=== PATIENT | female | born 1995 | race Hispanic/Latino ===

== ENCOUNTER 2017-01-27 14:20 | Emergency (ER) | payer OTHER ==
[~2017-01-27] VITALS: Ht 157.5 cm; Wt 77.0 kg
[2017-01-27 14:23] VITALS: BP 161/84
[2017-01-27] MEDS ORDERED: PYRI25TA3 PO (14:58)
[2017-01-27] MEDS ORDERED: CVS25TAB16 PO (14:58)
== END 2017-01-27 15:12 | disposition home or self-care (01) ==
LOC: M ED 14:20
DX: Z32.01 Encounter for pregnancy test, result positive (principal)

== ENCOUNTER 2017-02-04 15:19 | Emergency (ER) | payer OTHER ==
[~2017-02-04] VITALS: Ht 157.5 cm; Wt 75.8 kg
[~2017-02-04 15:19] MED LIST: CVS25TAB16 PO; PYRI25TA3 PO; PYRIDOXINE 50 MG TAB PO SCH
[2017-02-04] MEDS ORDERED: NS 500 ML IV ONE (17:15)
[2017-02-04 17:43] LABS: BASO % 0.5 % (0.0-1.0); EOS # 0.2 K/mm3 (0.0-0.50); EOS % 1.4 % (0.0-3.0); LARGE UNSTAINED CELL # 0.1 K/mm3 (0.0-0.4); LARGE UNSTAINED CELL % 0.9 % (0.0-4.0); LYMPH # 1.2 K/mm3 (1.5-6.5); LYMPH % 10.6 % (24.0-44.0); MEAN CORPUSCULAR HEMOGLOBIN 28.3 pg (27.0-33.0); MEAN CORPUSCULAR HGB CONC 33.1 g/dl (32.0-36.5); MEAN CORPUSCULAR VOLUME 85.3 fl (80.0-96.0); MONO # 0.4 K/mm3 (0.0-0.8); MONO % 3.6 % (0.0-5.0); PLATELET COUNT, AUTOMATED 293 k/mm3 (150-450); RED CELL DISTRIBUTION WIDTH 13.1 % (11.5-14.5); WHITE BLOOD COUNT 10.8 K/mm3 (4.0-10.0)
[2017-02-04 18:14] LABS: ALKALINE PHOSPHATASE 42 U/L (45-117); ALT/SGPT 39 U/L (12-78); AST/SGOT 16 U/L (15-37); BILIRUBIN,DIRECT 0.1 MG/DL (0.0-0.2); BILIRUBIN,TOTAL 0.4 MG/DL (0.2-1.0); BLOOD UREA NITROGEN 7 MG/DL (7-18); CALCIUM LEVEL 8.9 MG/DL (8.5-10.1); CARBON DIOXIDE LEVEL 24 MEQ/L (21-32); CHLORIDE LEVEL 105 MEQ/L (98-107); CREATININE FOR GFR 0.66 MG/DL (0.55-1.02); GLUCOSE, FASTING 80 MG/DL (70-105); POTASSIUM SERUM 3.7 MEQ/L (3.5-5.1); SODIUM LEVEL 139 MEQ/L (136-145); TOTAL PROTEIN 8.3 GM/DL (6.4-8.2)
[2017-02-04] MEDS ORDERED: NS 1,000 ML IV ONE (18:30)
[2017-02-04 18:46] LABS: HCG, SERUM QUANTITATIVE 27933 MIU/ML
[2017-02-04 18:50] LABS: ANION GAP 10 MEQ/L (8-16)
[2017-02-04 18:51] LABS: ALBUMIN/GLOBULIN RATIO 0.93 (1.00-1.93)
--- NOTE | 2017-02-04 19:50 | REPUSA ---
Clinical history: vomiting. Findings: Real-time transabdominal and transvaginal ultrasound images of the pelvis were obtained. Th ere is a single intrauterine gestational sac with a crown rump length of 0.5 cm. heart rate cordelia sures 124 bpm. There is no evidence of a subchorionic hemorrhage. An anteverted uterus is noted, nain uring 9.2 x 4.6 cm. The uterus demonstrates normal echotexture and echogenicity. The endometrial str ipe measures 3 mm and is within normal limits. The right ovary was not visualized. The left ovary me asures 2.6 x 1.6 x 2.2 cm. No adnexal masses are seen. There is no evidence of free fluid. Impression: 1. Single live intrauterine measuring 6 weeks 1 day, with heart rate of 124 bpm. Fely mated due date is 09/25/2017. 2. No other gross abnormalities appreciated.
[2017-02-04] MEDS ORDERED: REGL10TA6 PO (20:40)
[2017-02-04 21:10] VITALS: BP 129/58
== END 2017-02-04 21:16 | disposition home or self-care (01) ==
LOC: M ED 15:19
DX: O21.0 Mild hyperemesis gravidarum (principal); Z3A.01 Less than 8 weeks gestation of pregnancy

== ENCOUNTER 2017-02-11 23:53 | Emergency (ER) | payer OTHER ==
[~2017-02-11 23:53] MED LIST changes: -PYRIDOXINE 50 MG TAB PO SCH; +REGL10TA6 PO
[2017-02-12] MEDS ORDERED: NS 500 ML IV ONE (00:30)
[2017-02-12] MEDS ORDERED: ONDANSETRON 4MG/2ML VIAL (J2405) IV ONE ×2 (00:30→03:00)
[2017-02-12 00:46] LABS: BASO % 0.4 % (0.0-1.0); EOS # 0.1 K/mm3 (0.0-0.50); LARGE UNSTAINED CELL # 0.1 K/mm3 (0.0-0.4); LARGE UNSTAINED CELL % 1.1 % (0.0-4.0); LYMPH # 1.4 K/mm3 (1.5-6.5); LYMPH % 10.9 % (24.0-44.0); MEAN CORPUSCULAR HEMOGLOBIN 29.3 pg (27.0-33.0); MEAN CORPUSCULAR HGB CONC 34.5 g/dl (32.0-36.5); MONO # 0.6 K/mm3 (0.0-0.8); MONO % 4.9 % (0.0-5.0); NEUTROPHILS # 10.4 K/mm3 (1.8-7.7); NEUTROPHILS % 81.8 % (36.0-66.0); PLATELET COUNT, AUTOMATED 323 k/mm3 (150-450); RED CELL DISTRIBUTION WIDTH 12.8 % (11.5-14.5); WHITE BLOOD COUNT 12.7 K/mm3 (4.0-10.0)
[2017-02-12 00:55] LABS: CONTROL LINE HCG INT CTR LINE PRESENT
[2017-02-12 01:14] LABS: ALBUMIN/GLOBULIN RATIO 0.78 (1.00-1.93); ALKALINE PHOSPHATASE 42 U/L (45-117); ALT/SGPT 53 U/L (12-78); ANION GAP 11 MEQ/L (8-16); AST/SGOT 22 U/L (15-37); BILIRUBIN,DIRECT 0.2 MG/DL (0.0-0.2); BILIRUBIN,TOTAL 0.5 MG/DL (0.2-1.0); BLOOD UREA NITROGEN 8 MG/DL (7-18); CALCIUM LEVEL 9.5 MG/DL (8.5-10.1); CARBON DIOXIDE LEVEL 23 MEQ/L (21-32); CHLORIDE LEVEL 104 MEQ/L (98-107); CREATININE FOR GFR 0.69 MG/DL (0.55-1.02); GLOMERULAR FILTRATION RATE > 60.0 (>60); GLUCOSE, FASTING 89 MG/DL (70-105); POTASSIUM SERUM 3.3 MEQ/L (3.5-5.1); SODIUM LEVEL 138 MEQ/L (136-145); TOTAL PROTEIN 9.1 GM/DL (6.4-8.2)
[2017-02-12] MEDS ORDERED: MACR100C43 PO (04:39)
[2017-02-12] MEDS ORDERED: ZOFR4TAB3 PO (04:39)
[2017-02-12 04:50] VITALS: BP 104/53
[2017-02-13] MEDS ORDERED: FLAG500T PO (21:31)
[2017-02-13] MEDS ORDERED: TIGA300C2 PO (21:31)
== END 2017-02-12 04:51 | disposition home or self-care (01) ==
LOC: M ED 23:53
DX: O21.0 Mild hyperemesis gravidarum (principal); O23.41 Unspecified infection of urinary tract in pregnancy, first trimester; Z3A.01 Less than 8 weeks gestation of pregnancy
CPT/HCPCS: 80048; 80076; 81001; 83605; 83690; 84703; 85025; 93041; 96374; 96375; 99284; J2405

== ENCOUNTER 2017-02-13 18:09 | Emergency (ER) | payer OTHER ==
[~2017-02-13] VITALS: Ht 157.5 cm; Wt 73.7 kg
[~2017-02-13 18:09] MED LIST changes: +MACR100C43 PO; +ZOFR4TAB3 PO
[2017-02-13] MEDS ORDERED: NS 1,000 ML IV ONE (19:45)
[2017-02-13] MEDS ORDERED: METOCLOPRAMIDE INJ 10MG/2ML VIAL (J2765) IV ONE (19:45)
[2017-02-13 20:18] LABS: BASO % 0.3 % (0.0-1.0); EOS # 0.1 K/mm3 (0.0-0.50); EOS % 1.3 % (0.0-3.0); LARGE UNSTAINED CELL # 0.1 K/mm3 (0.0-0.4); LARGE UNSTAINED CELL % 0.6 % (0.0-4.0); LYMPH % 11.2 % (24.0-44.0); MEAN CORPUSCULAR HEMOGLOBIN 28.7 pg (27.0-33.0); MEAN CORPUSCULAR HGB CONC 33.8 g/dl (32.0-36.5); MEAN CORPUSCULAR VOLUME 85.1 fl (80.0-96.0); MONO # 0.3 K/mm3 (0.0-0.8); MONO % 3.6 % (0.0-5.0); NEUTROPHILS # 7.4 K/mm3 (1.8-7.7); PLATELET COUNT, AUTOMATED 301 k/mm3 (150-450); RED CELL DISTRIBUTION WIDTH 12.9 % (11.5-14.5)
--- NOTE | 2017-02-13 20:30 | REPUSA ---
Clinical history: Right upper quadrant pain. Findings: The pancreas is limited in visualization secondary to overlying bowel gas, but appears krystal sly unremarkable. The liver demonstrates increased echotexture and echogenicity, with no mass lesions . The gallbladder contains several tiny gallstones. The common bile duct measures 4 mm and is within normal limits. The right kidney measures 10.8 cm in length and is unremarkable. There is no ascites. Impression: 1. Cholelithiasis, without evidence of acute cholecystitis. 2. Fatty infiltration of the liver.
[2017-02-13] MEDS ORDERED: TRIMETHOBENZAMIDE HCL INJ 200 MG/2 ML VIAL (J3250) IM ONE (20:45)
[2017-02-13 20:56] LABS: ALBUMIN 3.9 GM/DL (3.2-5.2); ALBUMIN/GLOBULIN RATIO 0.91 (1.00-1.93); ALKALINE PHOSPHATASE 43 U/L (45-117); ALT/SGPT 111 U/L (12-78); ANION GAP 6 MEQ/L (8-16); AST/SGOT 46 U/L (15-37); BILIRUBIN,TOTAL 0.5 MG/DL (0.2-1.0); BLOOD UREA NITROGEN 8 MG/DL (7-18); CALCIUM LEVEL 9.3 MG/DL (8.5-10.1); CARBON DIOXIDE LEVEL 26 MEQ/L (21-32); CHLORIDE LEVEL 104 MEQ/L (98-107); CREATININE FOR GFR 0.68 MG/DL (0.55-1.02); GLOMERULAR FILTRATION RATE > 60.0 (>60); GLUCOSE, FASTING 90 MG/DL (70-105); HCG, SERUM QUANTITATIVE 80156 MIU/ML; POTASSIUM SERUM 3.7 MEQ/L (3.5-5.1); SODIUM LEVEL 136 MEQ/L (136-145); TOTAL PROTEIN 8.2 GM/DL (6.4-8.2)
[2017-02-13] MEDS ORDERED: TIGA300C2 PO (21:31)
[2017-02-13] MEDS ORDERED: FLAG500T PO (21:31)
[2017-02-13 21:42] VITALS: BP 127/58
== END 2017-02-13 21:51 | disposition home or self-care (01) ==
LOC: M ED 18:09
DX: O98.911 Unspecified maternal infectious and parasitic disease complicating pregnancy, first trimester (principal); K80.20 Calculus of gallbladder without cholecystitis without obstruction; N76.0 Acute vaginitis; Z88.8 Allergy status to other drugs, medicaments and biological substances; Z3A.01 Less than 8 weeks gestation of pregnancy
CPT/HCPCS: 76705; 80053; 81001; 83690; 84702; 85025; 87086; 87210; 87491; 87591; 96361; 96372; 96374; 99283; J2765; J3250

== ENCOUNTER 2017-02-18 12:05 | Emergency (ER) | payer OTHER ==
[~2017-02-18] VITALS: Ht 157.5 cm; Wt 47.5 kg
[~2017-02-18 12:05] MED LIST changes: +FLAG500T PO; +TIGA300C2 PO
[2017-02-18] MEDS ORDERED: TRIMETHOBENZAMIDE HCL INJ 200 MG/2 ML VIAL (J3250) IM ONE (12:30)
[2017-02-18] MEDS ORDERED: NS 1,000 ML IV ONE (12:30)
[2017-02-18 12:47] LABS: BASO % 0.5 % (0.0-1.0); EOS # 0.1 K/mm3 (0.0-0.50); EOS % 0.8 % (0.0-3.0); LARGE UNSTAINED CELL # 0.1 K/mm3 (0.0-0.4); LYMPH # 0.9 K/mm3 (1.5-6.5); LYMPH % 9.1 % (24.0-44.0); MEAN CORPUSCULAR HEMOGLOBIN 28.9 pg (27.0-33.0); MEAN CORPUSCULAR HGB CONC 34.7 g/dl (32.0-36.5); MEAN CORPUSCULAR VOLUME 83.2 fl (80.0-96.0); MONO # 0.4 K/mm3 (0.0-0.8); MONO % 4.1 % (0.0-5.0); NEUTROPHILS # 8.6 K/mm3 (1.8-7.7); NEUTROPHILS % 84.5 % (36.0-66.0); PLATELET COUNT, AUTOMATED 337 k/mm3 (150-450); RED CELL DISTRIBUTION WIDTH 12.9 % (11.5-14.5); WHITE BLOOD COUNT 10.1 K/mm3 (4.0-10.0)
[2017-02-18 13:04] LABS: ALBUMIN 4.2 GM/DL (3.2-5.2); ALBUMIN/GLOBULIN RATIO 0.78 (1.00-1.93); ALKALINE PHOSPHATASE 49 U/L (45-117); ALT/SGPT 119 U/L (12-78); ANION GAP 12 MEQ/L (8-16); AST/SGOT 32 U/L (15-37); BILIRUBIN,TOTAL 0.8 MG/DL (0.2-1.0); BLOOD UREA NITROGEN 9 MG/DL (7-18); CARBON DIOXIDE LEVEL 24 MEQ/L (21-32); CHLORIDE LEVEL 102 MEQ/L (98-107); CREATININE FOR GFR 0.76 MG/DL (0.55-1.02); GLOMERULAR FILTRATION RATE > 60.0 (>60); GLUCOSE, FASTING 102 MG/DL (70-105); POTASSIUM SERUM 3.3 MEQ/L (3.5-5.1); SODIUM LEVEL 138 MEQ/L (136-145); TOTAL PROTEIN 9.6 GM/DL (6.4-8.2)
[2017-02-18] MEDS ORDERED: METOCLOPRAMIDE INJ 10MG/2ML VIAL (J2765) IV ONE (16:00)
[2017-02-18] MEDS ORDERED: NS 500 ML IV ONE (16:00)
[2017-02-18 16:55] VITALS: BP 124/69
--- NOTE | 2017-02-18 20:52 | REP ---
RIGHT UPPER QUADRANT ULTRASOUND: Real-time sonographic evaluation of the right upper quadrant is performed. Multiple gallstones are seen in the gallbladder. There is no gallbladder wall thickening or pericholecystic fluid. There is no intrahepatic or extrahepatic biliary dilatation. Common bile duct measuring 5 mm in diameter. Liver demonstrates diffuse heterogenous increased echotexture suggesting diffuse fatty infiltration. No gross liver mass is seen. Pancreas could not be seen due to overlying bowel gas. Right kidney demonstrates no hydronephrosis or nephrolithiasis of normal size at 10.5 cm in length. IMPRESSION: Multiple gallstones in the gallbladder without gallbladder wall thickening, pericholecystic fluid or biliary dilatation. Diffuse fatty infiltration of the liver. Signed by Ankur Bales MD 02/19/2017 01:06 P
== END 2017-02-18 17:18 | disposition home or self-care (01) ==
LOC: M ED 13:00
DX: O21.0 Mild hyperemesis gravidarum (principal); O99.611 Diseases of the digestive system complicating pregnancy, first trimester; K80.20 Calculus of gallbladder without cholecystitis without obstruction; O99.511 Diseases of the respiratory system complicating pregnancy, first trimester; J45.909 Unspecified asthma, uncomplicated; Z3A.01 Less than 8 weeks gestation of pregnancy; Z88.6 Allergy status to analgesic agent; Z79.899 Other long term (current) drug therapy
CPT/HCPCS: 76705; 80053; 81001; 85025; 87086; 96361; 96372; 96374; 99283; J2765; J3250

== ENCOUNTER 2017-02-23 19:13 | Inpatient (IN) | payer OTHER ==
[~2017-02-23] VITALS: Ht 157.5 cm; Wt 72.3 kg
[2017-02-23] MEDS ORDERED: TRIMETHOBENZAMIDE HCL INJ 200 MG/2 ML VIAL (J3250) IM ONE (20:15)
[2017-02-23] MEDS ORDERED: NS 1,000 ML IV ONE ×2 (20:15→21:15)
[2017-02-23 20:28] LABS: BASO % 0.2 % (0.0-1.0); EOS # 0.2 K/mm3 (0.0-0.50); EOS % 1.7 % (0.0-3.0); LARGE UNSTAINED CELL # 0.1 K/mm3 (0.0-0.4); LARGE UNSTAINED CELL % 1.2 % (0.0-4.0); LYMPH # 1.3 K/mm3 (1.5-6.5); LYMPH % 11.8 % (24.0-44.0); MEAN CORPUSCULAR HEMOGLOBIN 28.9 pg (27.0-33.0); MEAN CORPUSCULAR HGB CONC 34.9 g/dl (32.0-36.5); MEAN CORPUSCULAR VOLUME 82.7 fl (80.0-96.0); MONO # 0.5 K/mm3 (0.0-0.8); MONO % 5.4 % (0.0-5.0); NEUTROPHILS # 7.9 K/mm3 (1.8-7.7); NEUTROPHILS % 79.7 % (36.0-66.0); PLATELET COUNT, AUTOMATED 313 k/mm3 (150-450); RED CELL DISTRIBUTION WIDTH 13.3 % (11.5-14.5); WHITE BLOOD COUNT 9.9 K/mm3 (4.0-10.0)
[2017-02-23 20:48] LABS: ANION GAP 16 MEQ/L (8-16); BLOOD UREA NITROGEN 12 MG/DL (7-18); CALCIUM LEVEL 10.2 MG/DL (8.5-10.1); CARBON DIOXIDE LEVEL 22 MEQ/L (21-32); CHLORIDE LEVEL 96 MEQ/L (98-107); CREATININE FOR GFR 0.82 MG/DL (0.55-1.02); GLOMERULAR FILTRATION RATE > 60.0 (>60); GLUCOSE, FASTING 107 MG/DL (70-105); SODIUM LEVEL 134 MEQ/L (136-145)
[2017-02-23 21:02] LABS: POTASSIUM SERUM 2.7 MEQ/L (3.5-5.1)
[2017-02-23 21:12] LABS: HCG, SERUM QUANTITATIVE 117603 MIU/ML
[2017-02-23] MEDS ORDERED: KCL 10MEQ IN 100ML SWI (KRUN) 10 MEQ in APPROPRIATE DILUENT 1 EA IV ONE ×2 (21:15)
[2017-02-23] MEDS ORDERED: POTASSIUM CHLORIDE 10 MEQ SR TABLET PO ONE (21:15)
[2017-02-23] MEDS ORDERED: METOCLOPRAMIDE INJ 10MG/2ML VIAL (J2765) IV ONE (22:00)
[2017-02-23] MEDS ORDERED: ACETAMINOPHEN 325 MG TAB PO ONE (23:15)
[2017-02-24] VITALS (12 sets, daily range): BP systolic 111–140; BP diastolic 64–99
[2017-02-24] MEDS ORDERED: FAMOTIDINE IV BAG 20 MG in APPROPRIATE DILUENT 1 EA IV SCH ×2
[2017-02-24] MEDS ORDERED: KCL 40MEQ IN D5/0.45NS 1000ML 1,000 ML IV SCH (00:15)
[2017-02-24 00:36] LABS: ANION GAP 11 MEQ/L (8-16); BLOOD UREA NITROGEN 9 MG/DL (7-18); CALCIUM LEVEL 8.4 MG/DL (8.5-10.1); CARBON DIOXIDE LEVEL 23 MEQ/L (21-32); CHLORIDE LEVEL 105 MEQ/L (98-107); CREATININE FOR GFR 0.72 MG/DL (0.55-1.02); GLOMERULAR FILTRATION RATE > 60.0 (>60); GLUCOSE, FASTING 106 MG/DL (70-105); SODIUM LEVEL 139 MEQ/L (136-145)
--- NOTE | 2017-02-24 01:00 | REPUSA ---
CLINICAL HISTORY: Dating and viability. TECHNIQUE: Transabdominal ultrasound of the pelvis was performed. FINDINGS: Single, live intrauterine gestation. The crown-rump length measures 2.7 cm. This corresponds to an estimated gestational age of 9 weeks an d 3 days. Estimated heart rate 173 beats per minute. heart rate 173 beats per minute. No subchorionic hemorrhage was identified. No abnormality in the maternal adnexa or cul-de-sac. Estimated delivery date on 09/25/2017. IMPRESSION: Single, live intrauterine gestation. No abnormality is seen.
[2017-02-24] MEDS: ONDANSETRON 4MG/2ML VIAL (J2405) IV SCH ×4 (01:52→19:15)
[2017-02-24] MEDS: PROMETHAZINE INJ 25 MG/ML VIAL (J2550) IV SCH ×4 (01:52→19:15)
[2017-02-24] MEDS: FAMOTIDINE IV BAG 20 MG in APPROPRIATE DILUENT 1 EA IV SCH ×2 (01:53→23:30)
[2017-02-24] MEDS: LR 1,000 ML IV SCH ×3 (01:53→17:08)
[2017-02-24] MEDS: KCL 10MEQ IN STERILE WATER 100ML IV SCH ×4 (01:53→05:54)
[2017-02-24] MEDS ORDERED: POTASSIUM CHL PWD 20 MEQ PACKET PO ONE (09:00)
[2017-02-24] MEDS: PRENATAL VITAMINS CHEWABLE TABLET PO SCH (09:07)
[2017-02-24] MEDS ORDERED: KCL 10MEQ IN 100ML SWI (KRUN) 10 MEQ in APPROPRIATE DILUENT 1 EA IV ONE ×2 (10:00)
[2017-02-25] MEDS: ONDANSETRON 4MG/2ML VIAL (J2405) IV SCH ×4 (00:33→19:01)
[2017-02-25] MEDS: PROMETHAZINE INJ 25 MG/ML VIAL (J2550) IV SCH ×4 (00:34→20:14)
[2017-02-25] MEDS: LR 1,000 ML IV SCH ×3 (01:22→16:06)
[2017-02-25] MEDS: PRENATAL VITAMINS CHEWABLE TABLET PO SCH (09:04)
[2017-02-25 10:11] LABS: MEAN CORPUSCULAR HEMOGLOBIN 28.9 pg (27.0-33.0); MEAN CORPUSCULAR HGB CONC 34.2 g/dl (32.0-36.5); MEAN CORPUSCULAR VOLUME 84.4 fl (80.0-96.0); RED CELL DISTRIBUTION WIDTH 12.9 % (11.5-14.5); WHITE BLOOD COUNT 7.6 K/mm3 (4.0-10.0)
[2017-02-25 10:18] LABS: ALBUMIN 2.6 GM/DL (3.2-5.2); ALBUMIN/GLOBULIN RATIO 0.87 (1.00-1.93); ALKALINE PHOSPHATASE 33 U/L (45-117); ALT/SGPT 181 U/L (12-78); ANION GAP 11 MEQ/L (8-16); AST/SGOT 29 U/L (15-37); BILIRUBIN,TOTAL 0.6 MG/DL (0.2-1.0); BLOOD UREA NITROGEN 6 MG/DL (7-18); CARBON DIOXIDE LEVEL 23 MEQ/L (21-32); CHLORIDE LEVEL 104 MEQ/L (98-107); CREATININE FOR GFR 0.51 MG/DL (0.55-1.02); GLOMERULAR FILTRATION RATE > 60.0 (>60); GLUCOSE, FASTING 106 MG/DL (70-105); MAGNESIUM LEVEL 1.8 MG/DL (1.8-2.4); POTASSIUM SERUM 3.2 MEQ/L (3.5-5.1); SODIUM LEVEL 138 MEQ/L (136-145); TOTAL PROTEIN 5.6 GM/DL (6.4-8.2)
[2017-02-25 20:00] VITALS: BP 116/67
[2017-02-26] MEDS: FAMOTIDINE IV BAG 20 MG in APPROPRIATE DILUENT 1 EA IV SCH (00:05)
[2017-02-26] MEDS: ONDANSETRON 4MG/2ML VIAL (J2405) IV SCH ×2 (00:44→06:31)
[2017-02-26] MEDS: PROMETHAZINE INJ 25 MG/ML VIAL (J2550) IV SCH ×2 (01:23→06:31)
[2017-02-26] MEDS: LR 1,000 ML IV SCH (01:23)
[2017-02-26 05:02] VITALS: BP 116/62
[2017-02-26] MEDS ORDERED: PROMETHAZINE 25 MG SUPP PR SCH (06:00)
[2017-02-26] MEDS ORDERED: ONDANSETRON 4 MG TAB (S0181) PO SCH (06:00)
[2017-02-26 08:00] VITALS: BP 120/62
[2017-02-26] MEDS: FAMOTIDINE 20 MG TAB PO SCH (09:51)
[2017-02-26] MEDS: PRENATAL VITAMINS CHEWABLE TABLET PO SCH (09:51)
[2017-02-26] MEDS: ONDANSETRON 4 MG TAB (S0181) PO SCH ×2 (12:03→17:37)
[2017-02-26] MEDS: PROMETHAZINE 25 MG SUPP PR SCH ×2 (12:03→17:37)
[2017-02-26 16:00] VITALS: BP 124/58
[2017-02-26 20:00] VITALS: BP 135/70
[2017-02-27] VITALS: BP 130/67
[2017-02-27] MEDS: ONDANSETRON 4 MG TAB (S0181) PO SCH ×2 (00:06→06:11)
[2017-02-27] MEDS: PROMETHAZINE 25 MG SUPP PR SCH ×2 (00:06→06:12)
[2017-02-27 08:00] VITALS: BP 118/62
[2017-02-27] MEDS: PRENATAL VITAMINS CHEWABLE TABLET PO SCH (09:24)
[2017-02-27] MEDS: FAMOTIDINE 20 MG TAB PO SCH (09:24)
[2017-02-27] MEDS ORDERED: ZOFR8TAB PO (09:32)
[2017-02-27] MEDS ORDERED: PHEN1SUP6 PR (09:32)
[2017-02-27] MEDS ORDERED: PRENCHW PO (09:32)
== END 2017-02-27 10:55 | disposition home or self-care (01) | DRG 781 ==
LOC: M ED 19:13 → M ED INP 02-24 00:07 → MERGE 02-24 00:07 → M PED 02-24 01:00
PROVIDERS: ADMIT Student in an Organized Health Care Education/Training Program; ATTEND Student in an Organized Health Care Education/Training Program
DX: O21.0 Mild hyperemesis gravidarum (principal); Z3A.08 8 weeks gestation of pregnancy; Z91.14 Patient's other noncompliance with medication regimen; Z79.899 Other long term (current) drug therapy

== ENCOUNTER 2017-04-29 11:53 | Emergency (ER) | payer OTHER ==
[~2017-04-29] VITALS: Ht 157.5 cm; Wt 69.1 kg
[~2017-04-29 11:53] MED LIST changes: +PHEN1SUP6 PR; +PRENCHW PO; +ZOFR8TAB PO
[2017-04-29] MEDS ORDERED: NS 1,000 ML IV ONE (12:30)
[2017-04-29] MEDS ORDERED: ONDANSETRON 4MG/2ML VIAL (J2405) IV ONE (12:30)
[2017-04-29 12:38] LABS: BASO % 0.2 % (0.0-1.0); EOS % 0.5 % (0.0-3.0); IMMATURE GRANULOCYTE % 0.4 % (0-0); LYMPH % 12.3 % (24.0-44.0); MEAN CORPUSCULAR HEMOGLOBIN 29.2 pg (27.0-33.0); MEAN CORPUSCULAR HGB CONC 35.6 g/dl (32.0-36.5); MEAN CORPUSCULAR VOLUME 81.9 fl (80.0-96.0); MONO # 0.6 10^3/uL (0.0-0.8); MONO % 7.1 % (0.0-5.0); NEUTROPHILS # 6.6 10^3/uL (1.8-7.7); NEUTROPHILS % 79.5 % (36.0-66.0); PLATELET COUNT, AUTOMATED 310 10^3/uL (150-450); RED CELL DISTRIBUTION WIDTH 14.2 % (11.5-14.5); WHITE BLOOD COUNT 8.3 10^3/uL (4.0-10.0)
[2017-04-29 12:56] LABS: ANION GAP 12 MEQ/L (8-16); BLOOD UREA NITROGEN 8 MG/DL (7-18); CALCIUM LEVEL 9.5 MG/DL (8.5-10.1); CARBON DIOXIDE LEVEL 22 MEQ/L (21-32); CHLORIDE LEVEL 102 MEQ/L (98-107); CREATININE FOR GFR 0.69 MG/DL (0.55-1.02); GLOMERULAR FILTRATION RATE > 60.0 (>60); GLUCOSE, FASTING 107 MG/DL (70-105); SODIUM LEVEL 136 MEQ/L (136-145)
[2017-04-29] MEDS ORDERED: ONDANSETRON 4 MG ORAL DISINTEGRATING TAB (S0181) PO ONE (14:00)
[2017-04-29 14:18] LABS: MICROSCOPIC INDICATED? MAN YES (NO)
[2017-04-29 14:28] LABS: BACTERIA, URINE LARGE AMOUNT; HYALINE CAST, URINE NONE SEEN /lpf (0-1); MICROSCOPIC EXAM PERFORMED; SQUAMOUS EPITHELIAL CELL URINE MOD AMOUNT /hpf (SMALL AMT)
--- NOTE | 2017-04-29 15:13 | ECGEPIP ---
Stationary ECG Study [facility] - ED Test Date: 2017-04-29 Pat Name: KATE FRANCISCO Department: Room: - Gender: F [employer] Camera Person: : 1995 Requested By: GOLDY OMER Order Number: [id number] Reading MD: Rita Law Measurements Intervals [place] Rate: 110 P: 40 CO: 128 QRS: 50 QRSD: 81 T: 5 QT: 325 QTc: 440 Interpretive Statements SINUS TACHYCARDIA ABNORMAL RHYTHM ECG NO PRIOR FOR COMPARISON Electronically Signed On 04-29-2017 15:13:02 EDT by Rita Law
[2017-04-29] MEDS ORDERED: K-TA10TA2 PO (15:51)
[2017-04-29] MEDS ORDERED: MACR100C43 PO (15:52)
[2017-04-29] MEDS ORDERED: ZOFR4TAB3 PO (15:52)
[2017-04-29 16:07] VITALS: BP 120/81
== END 2017-04-29 16:10 | disposition home or self-care (01) ==
LOC: M ED 11:53
DX: O23.42 Unspecified infection of urinary tract in pregnancy, second trimester (principal); O99.282 Endocrine, nutritional and metabolic diseases complicating pregnancy, second trimester; E87.6 Hypokalemia; O21.0 Mild hyperemesis gravidarum; Z3A.19 19 weeks gestation of pregnancy; O99.512 Diseases of the respiratory system complicating pregnancy, second trimester; J45.909 Unspecified asthma, uncomplicated; Z79.899 Other long term (current) drug therapy; Z88.8 Allergy status to other drugs, medicaments and biological substances
CPT/HCPCS: 80048; 81000; 85025; 87086; 93005; 96361; 96374; 99284; J2405

== ENCOUNTER 2017-05-03 10:42 | Emergency (ER) | payer OTHER ==
[~2017-05-03] VITALS: Ht 157.5 cm; Wt 69.1 kg
[~2017-05-03 10:42] MED LIST changes: +K-TA10TA2 PO
[2017-05-03] MEDS ORDERED: METOCLOPRAMIDE INJ 10MG/2ML VIAL (J2765) IV ONE (11:15)
[2017-05-03] MEDS ORDERED: NS 1,000 ML IV ONE ×2 (11:15→13:00)
[2017-05-03 11:19] LABS: BASO % 0.2 % (0.0-1.0); EOS % 0.4 % (0.0-3.0); IMMATURE GRANULOCYTE % 0.5 % (0-0); LYMPH % 11.9 % (24.0-44.0); MEAN CORPUSCULAR HEMOGLOBIN 29.6 pg (27.0-33.0); MEAN CORPUSCULAR HGB CONC 35.4 g/dl (32.0-36.5); MEAN CORPUSCULAR VOLUME 83.4 fl (80.0-96.0); MONO # 0.6 10^3/uL (0.0-0.8); MONO % 7.3 % (0.0-5.0); NEUTROPHILS # 6.8 10^3/uL (1.8-7.7); NEUTROPHILS % 79.7 % (36.0-66.0); PLATELET COUNT, AUTOMATED 318 10^3/uL (150-450); RED CELL DISTRIBUTION WIDTH 13.7 % (11.5-14.5); WHITE BLOOD COUNT 8.5 10^3/uL (4.0-10.0)
[2017-05-03] MEDS ORDERED: diphenhydrAMINE INJ 50MG/ML VIAL (J1200) IV STA ×2 (11:49→14:36)
[2017-05-03] MEDS ORDERED: diphenhydrAMINE INJ 50MG/ML VIAL (J1200) As Ordered ONE (11:49)
[2017-05-03 11:58] LABS: ALBUMIN 3.8 GM/DL (3.2-5.2); ALBUMIN/GLOBULIN RATIO 0.68 (1.00-1.93); ALKALINE PHOSPHATASE 57 U/L (45-117); ALT/SGPT 418 U/L (12-78); ANION GAP 11 MEQ/L (8-16); AST/SGOT 205 U/L (15-37); BILIRUBIN,TOTAL 1.3 MG/DL (0.2-1.0); BLOOD UREA NITROGEN 7 MG/DL (7-18); CALCIUM LEVEL 9.8 MG/DL (8.5-10.1); CARBON DIOXIDE LEVEL 27 MEQ/L (21-32); CHLORIDE LEVEL 97 MEQ/L (98-107); CREATININE FOR GFR 0.67 MG/DL (0.55-1.02); GLOMERULAR FILTRATION RATE > 60.0 (>60); GLUCOSE, FASTING 102 MG/DL (70-105); HCG, SERUM QUANTITATIVE 9844 MIU/ML; POTASSIUM SERUM 2.9 MEQ/L (3.5-5.1); SODIUM LEVEL 135 MEQ/L (136-145); TOTAL PROTEIN 9.4 GM/DL (6.4-8.2)
[2017-05-03] MEDS ORDERED: KCL 10MEQ IN 100ML SWI (KRUN) 10 MEQ in APPROPRIATE DILUENT 1 EA IV ONE ×2 (12:45)
--- NOTE | 2017-05-03 14:37 | REP ---
Right upper quadrant sonography: History: 19 weeks gestation. Elevated liver function studies. Comparison sonography is from February 18, 2017. This prior study showed multiple gallstones and fatty infiltration of the liver. Findings: Scanning through the right upper quadrant of the abdomen demonstrates a normal sized gallbladder containing multiple shadowing calculi in its dependent portion as before. No gallbladder wall thickening is seen. No pericholecystic fluid is noted. The common bile duct is normal measuring 0.4 cm in greatest diameter. No focal liver lesion is appreciated. There is no evidence of ascites or right renal abnormality. The right kidney measures 10.4 x 4.2 x 5.6 cm. heart rate is recorded at the time of the exam at 144 beats per minute. Impression: Cholelithiasis again noted. No other abnormality. Signed by Fahad Hill MD 05/03/2017 05:23 P
[2017-05-03] MEDS ORDERED: ONDANSETRON 4MG/2ML VIAL (J2405) IV ONE (14:45)
[2017-05-03] MEDS ORDERED: CEFD1CAP8 PO (14:54)
[2017-05-03] MEDS ORDERED: DIPH25CA PO (14:54)
[2017-05-03 15:52] VITALS: BP 113/66
--- NOTE | 2017-05-04 08:24 | ECGEPIP ---
Stationary ECG Study [facility] - ED Test Date: 2017-05-03 Pat Name: KATE FRANCISCO Department: Room: - Gender: F Project Coordinator Rn: julius : 1995 Requested By: Tamika Urena Order Number: [id number] Reading MD: Rita Law Measurements Intervals [place] Rate: 91 P: 33 SD: 128 QRS: 43 QRSD: 91 T: 5 QT: 357 QTc: 441 Interpretive Statements SINUS RHYTHM NSTTW ABNORMALITY COMPARED 04/29/17 Electronically Signed On 05-04-2017 8:24:32 EDT by Rita Law
== END 2017-05-03 15:53 | disposition home or self-care (01) ==
LOC: M ED 10:42
DX: O99.282 Endocrine, nutritional and metabolic diseases complicating pregnancy, second trimester (principal); E87.6 Hypokalemia; O99.512 Diseases of the respiratory system complicating pregnancy, second trimester; J01.90 Acute sinusitis, unspecified; O21.0 Mild hyperemesis gravidarum; J45.909 Unspecified asthma, uncomplicated; Z3A.19 19 weeks gestation of pregnancy; Z79.899 Other long term (current) drug therapy; Z88.8 Allergy status to other drugs, medicaments and biological substances; Z91.02 Food additives allergy status
CPT/HCPCS: 76705; 80053; 83690; 84702; 85025; 93005; 96374; 96375; 99284; J1200; J2405; J2765

== ENCOUNTER 2017-09-08 21:44 | Outpatient (CLI) | payer OTHER | END 2017-09-08 22:55 | disposition home or self-care (01) | LOC: M LDO 21:44 | DX: O47.1 False labor at or after 37 completed weeks of gestation (principal); Z3A.37 37 weeks gestation of pregnancy; O09.33 Supervision of pregnancy with insufficient antenatal care, third trimester | CPT/HCPCS: 59025 ==

== ENCOUNTER 2017-09-21 18:55 | Outpatient (CLI) | payer OTHER | END 2017-09-21 20:19 | disposition home or self-care (01) | LOC: M LDO 18:55 | DX: O47.1 False labor at or after 37 completed weeks of gestation (principal); Z3A.39 39 weeks gestation of pregnancy; Z88.8 Allergy status to other drugs, medicaments and biological substances | CPT/HCPCS: 59025 ==

== ENCOUNTER 2017-09-24 06:02 | Inpatient (IN) | payer OTHER ==
[2017-09-24] MEDS ORDERED: LR 1,000 ML IV ×2 (06:51→09:32)
[2017-09-24] MEDS ORDERED: FLEET ENEMA PR (07:00)
[2017-09-24] MEDS: LACTATED RINGER'S 1000 ML IV (07:40)
[2017-09-24] MEDS ORDERED: OXYTOCIN 30 UNITS IN 0.9% NaCl 500ML IV BAG (J2590) As Ordered (08:01)
[2017-09-24 08:09] LABS: HEMATOCRIT 31.8 % (36.0-47.0); MEAN CORPUSCULAR HEMOGLOBIN 23.6 pg (27.0-33.0); MEAN CORPUSCULAR HGB CONC 31.4 g/dl (32.0-36.5); PLATELET COUNT, AUTOMATED 287 10^3/uL (150-450); RED BLOOD COUNT 4.24 10^6/uL (4.00-5.40); RED CELL DISTRIBUTION WIDTH 15.5 % (11.5-14.5); WHITE BLOOD COUNT 8.5 10^3/uL (4.0-10.0)
[2017-09-24] MEDS ORDERED: OXYTOCIN DRIP 30 UNITS in APPROPRIATE DILUENT 1 EA IV (09:45)
[2017-09-24 10:59] LABS: CORD GAS ABE A -7.3; CORD GAS HCO3 A 19.7 MEQ/L; CORD GAS O2 SAT A 59.4 %; CORD GAS PO2 A 29.2 mmHg; CORD GAS SBC A 17.8 MEQ/L; CORD GAS TCO2 A 21.1 MEQ/L
[2017-09-24 11:03] LABS: CORD GAS ABE V -7.3; CORD GAS HCO3 V 19.2 MEQ/L; CORD GAS O2 SAT V 49.8 %; CORD GAS PCO2 V 42.2 mmHg; CORD GAS PH V 7.275 UNITS; CORD GAS PO2 V 24.7 mmHg; CORD GAS SBC V 17.5 MEQ/L; CORD GAS TCO2 V 20.5 MEQ/L
[2017-09-24] MEDS: OXYTOCIN DRIP 30 UNITS in APPROPRIATE DILUENT 1 EA IV (13:50)
[2017-09-24] MEDS: IBUPROFEN 800 MG TAB PO (13:57)
[2017-09-24] MEDS ORDERED: ACETAMINOPHEN TAB 650MG DOSE (2X325MG) PO (14:00)
[2017-09-24] MEDS ORDERED: DIBUCAINE 1% OINTMENT 30GM TOP (14:00)
[2017-09-24] MEDS ORDERED: METOCLOPRAMIDE INJ 10MG/2ML VIAL (J2765) IV (14:00)
[2017-09-24] MEDS: DOCUSATE SODIUM 100 MG CAP PO ×2 (14:15→21:00)
[2017-09-25 04:15] LABS: BEDSIDE GLUCOSE 99 MG/DL (70-105)
[2017-09-25] MEDS: PRENATAL VITAMINS CHEWABLE TABLET PO (08:28)
[2017-09-25] MEDS: DOCUSATE SODIUM 100 MG CAP PO (08:28)
[2017-09-25] MEDS: RHOGAM 300 MCG (1500 IU) INJ (J2790) IM (09:24)
[2017-09-25] MEDS: MEASLES,MUMPS,RUBELLA VACCINE INJ (MMR-II) (90707) SC (09:24)
== END 2017-09-25 17:00 | disposition home or self-care (01) | DRG 775 ==
LOC: M LDO 06:02 → M LDI 07:02 → M OBS 12:57
PROVIDERS: Obstetrics & Gynecology
PROC: 10E0XZZ Delivery of Products of Conception, External Approach (ICD-10-PCS; principal; 2017-09-24)
DX: O48.0 Post-term pregnancy (principal); Z37.0 Single live birth; Z3A.40 40 weeks gestation of pregnancy; Z88.6 Allergy status to analgesic agent; O66.0 Obstructed labor due to shoulder dystocia

== ENCOUNTER 2021-04-17 16:20 | Emergency (ER) | payer MEDICAID, OTHER, SELFPAY ==
[~2021-04-17] VITALS: Ht 157.5 cm; Wt 72.7 kg
[~2021-04-17 16:20] MED LIST changes: +CEFD1CAP8 PO; +COLA100C5 PO; +DIBU1OIN TOP; +DIPH25CA32 PO; +IBUP-1114 PO; +MAPA500T2 PO; +PRENTAB9 PO; -PYRI25TA3 PO; +PYRI25TA4 PO; +ZOFR4TAB14 PO; -ZOFR4TAB3 PO; -ZOFR8TAB PO; +ZOFR8TAB24 PO
[2021-04-17] MEDS ORDERED: NS 1,000 ML IV ONE (17:35)
[2021-04-17] MEDS ORDERED: ACETAMINOPHEN TAB 650MG DOSE (2X325MG) PO ONE (17:35)
[2021-04-17 18:51] LABS: BASO % 0.4 % (0.0-1.0); EOS # 0.1 10^3/uL (0.0-0.5); EOS % 1.8 % (0.0-3.0); HEMATOCRIT 41.1 % (36.0-47.0); HEMOGLOBIN 13.5 g/dl (12.0-15.5); LYMPH # 1.6 10^3/uL (1.5-5.0); LYMPH % 19.9 % (24.0-44.0); MEAN CORPUSCULAR HEMOGLOBIN 28.7 pg (27.0-33.0); MEAN CORPUSCULAR HGB CONC 32.8 g/dl (32.0-36.5); MEAN CORPUSCULAR VOLUME 87.4 fl (80.0-96.0); MONO # 0.7 10^3/uL (0.0-0.8); MONO % 8.6 % (2.0-8.0); NEUTROPHILS # 5.4 10^3/uL (1.5-8.5); NEUTROPHILS % 68.9 % (36.0-66.0); PLATELET COUNT, AUTOMATED 317 10^3/uL (150-450); WHITE BLOOD COUNT 7.8 10^3/uL (4.0-10.0)
[2021-04-17 19:03] LABS: HCG, SERUM QUALITATIVE POSITIVE (NEGATIVE)
[2021-04-17 19:06] LABS: BLOOD UREA NITROGEN 10 MG/DL (7-18); CALCIUM LEVEL 8.8 MG/DL (8.5-10.1); CARBON DIOXIDE LEVEL 26 MEQ/L (21-32); CHLORIDE LEVEL 107 MEQ/L (98-107); CREATININE FOR GFR 0.75 MG/DL (0.55-1.30); GLOMERULAR FILTRATION RATE > 60.0 (>60); GLUCOSE, FASTING 89 MG/DL (70-100); SODIUM LEVEL 139 MEQ/L (136-145)
--- NOTE | 2021-04-17 19:10 | REP ---
INDICATION: lower abdominal pain; 5 weeks ; bilateral flank pain. COMPARISON: None. TECHNIQUE: Transvaginal and transabdominal ultrasound evaluation of the pelvis was performed. FINDINGS: The uterus measures 10.2 x 5.1 x 4.3 cm. The endometrium measures 10 mm in thickness. There is no evidence of an intrauterine gestational sac. There are multiple nabothian cysts in the lower uterine segment. The right ovary measures 3.5 x 2.6 x 1.3 cm. The left ovary measures 3.6 x 2.2 x 1.8 cm. There is a hypoechoic nodule in the left ovary measuring 15 x 14 x 13 mm with peripheral vascularity. This could be an ectopic or corpus luteum. IMPRESSION: 1. No evidence of intrauterine . 2. Nodule with peripheral vascularity in the left ovary could be an ectopic or corpus luteum. Incidental Findings: Left ovarian ectopic versus corpus luteum. The critical information above was relayed directly by me by telephone to GOLDY KHOURY on 04/17/2021 at 7:06 pm with readback verification. <Electronically signed by Jay Harley > 04/17/21 [id number]
--- NOTE | 2021-04-17 19:12 | REP ---
INDICATION: lower abdominal pain; 5 weeks ; bilateral flank pain. COMPARISON: None. TECHNIQUE: Multiple ultrasound images of both kidneys were obtained in multiple projections. FINDINGS: The right kidney measures 10.6 x 4.8 x 3.7 cm. The left kidney measures 9.8 x 6.2 x 4.4 cm. The renal parenchymal echogenicity is normal. There are no focal abnormalities. There is no evidence of hydronephrosis. IMPRESSION: Normal renal ultrasound. <Electronically signed by Jay Harley > 04/17/21 [id number]
[2021-04-17 19:23] LABS: HCG, SERUM QUANTITATIVE 100 MIU/ML
[2021-04-17 20:43] VITALS: BP 105/67
--- NOTE | 2021-04-20 10:43 | ED PDOC ---
Post-Departure Follow-Up dr wong faxed formal report of pelvic us for fu Natalia Kunz MD Apr 20, 2021 10:43
== END 2021-04-17 20:50 | disposition home or self-care (01) ==
LOC: M ED 16:20
DX: O26.891 Other specified pregnancy related conditions, first trimester (principal); R10.2 Pelvic and perineal pain; O36.80X0 Pregnancy with inconclusive fetal viability, not applicable or unspecified; Z88.6 Allergy status to analgesic agent

== ENCOUNTER → 2021-04-20 | Outpatient (CLI) | payer SELFPAY | LOC: M PLALAB 09:09 | PROVIDERS: ATTEND Emergency Medicine | DX: O26.899 Other specified pregnancy related conditions, unspecified trimester (principal); R10.2 Pelvic and perineal pain ==